=== PATIENT | female | born 1960 | race Caucasian/White ===

== ENCOUNTER 2018-06-14 18:53 | Inpatient (IN) | payer MEDICAID ==
[~2018-06-14] VITALS: Ht 154.9 cm; Wt 76.9 kg
[~2018-06-14 18:53] MED LIST: ALBU2.5V12 NEB; AZI25OT PO; CLON-529 PO; GABA-534 PO; HYDR-3965 PO; IPRA4AER IH; LEVO125T PO; OMEP20CA10 PO; PRED10TA PO; PRED20TA PO; SPIR50TA5 PO; VENL-191 PO
[2018-06-14 19:21] LABS: HEMATOCRIT 35.8 % (35.0-45.0); HEMOGLOBIN 11.8 g/dl (12.0-16.0); MEAN CORPUSCULAR HEMOGLOBIN 29.3 PG (27.0-31.0); MEAN CORPUSCULAR VOLUME 88.7 FL (78-98); MEAN PLATELET VOLUME 8.8 FL (7.4-10.4); PLATELET COUNT 121 X10'3 (140-440); RED BLOOD COUNT 4.03 X10'6 (4.20-5.60); RED CELL DISTRIBUTION WIDTH 16.6 % (11.5-14.5); WHITE BLOOD COUNT 4.7 X10'3 (4.5-11.0)
[2018-06-14 19:34] LABS: INR 1.1 INR; PARTIAL THROMBOPLASTIN TIME 24 SECONDS (22-32); PROTHROMBIN TIME 11.8 SECONDS (9.0-12.0)
[2018-06-14 19:37] LABS: ALANINE AMINOTRANSFERASE 66 U/L (12-78); ALBUMIN 2.4 G/DL (3.4-5.0); ALBUMIN/GLOBULIN RATIO 0.5 (1.1-1.5); ALKALINE PHOSPHATASE 174 IU/L (46-116); ANION GAP 4 (8-16); ASPARTATE AMINO TRANSFERASE 70 U/L (10-37); BILIRUBIN,TOTAL 1.6 MG/DL (0.1-1.0); BLOOD UREA NITROGEN 21 MG/DL (7-18); BUN/CREATININE RATIO 14.3 (6.6-38.0); CALCIUM 9.1 MG/DL (8.5-10.1); CHLORIDE 107 MMOL/L (99-107); CREATININE 1.47 MG/DL (0.40-0.90); GLUCOSE 101 MG/DL (70-104); POTASSIUM 3.7 MMOL/L (3.5-5.1); SODIUM 138 MMOL/L (135-145); TOTAL CARBON DIOXIDE 26.7 MMOL/L (24-32); TOTAL PROTEIN 6.9 G/DL (6.4-8.2); eGFR 37 ML/MIN
[2018-06-14 19:48] LABS: ANISOCYTOSIS 1+; PLATELET ESTIMATE DECREASED; TOTAL CELLS COUNTED 100
[2018-06-14] MEDS ORDERED: normal saline 1000ML IV soln IVB ONE ×2 (20:45→21:40)
[2018-06-14] MEDS ORDERED: nitroGLYCERIN 0.4mg/hour patch TD ONE (20:50)
[2018-06-14] MEDS ORDERED: cloNIDine 0.2 MG/24 HR patch (7 day patch) TD ONE (20:55)
[2018-06-14] MEDS ORDERED: cloNIDine 0.1 mg tablet PO STA (21:06)
[2018-06-14 21:29] LABS: D-DIMER 5.86 MG/L FEU (0-0.50)
[2018-06-14] MEDS ORDERED: iohexol 350MG/ML 100ml bottle IV ONE (21:42)
[2018-06-14] MEDS ORDERED: IRON-12 (23:30)
[2018-06-14] MEDS ORDERED: ACET-2971 PO (23:30)
[2018-06-14] MEDS ORDERED: ASPI81TA52 PO (23:30)
[2018-06-14] MEDS ORDERED: GABA600T2 PO (23:30)
[2018-06-14] MEDS ORDERED: CefTRIAXone 2gm/D5W 50ml 50 ML IV ONE (23:55)
[2018-06-14] MEDS ORDERED: azithromycin/NS 500mg/250ml 250 ML IV ONE (23:55)
[2018-06-15 00:04] LABS: CLARITY,URINE CLEAR (Clear); COLOR,URINE YELLOW (Yellow); GLUCOSE, URINE NEGATIVE (Neg); KETONES,URINE NEGATIVE (Neg); LEUKOCYTE ESTERASE ,URINE NEGATIVE (Neg); NITRITES, URINE NEGATIVE (Neg); OCCULT BLOOD,URINE NEGATIVE (Neg); PH,URINE 5.5 (4.8-8.0); PROTEIN,URINE 30 mg/dl (Neg)
[2018-06-15 00:14] LABS: UA COLLECTION TYPE CLN CATCH MIDSTREAM
[2018-06-15 00:15] LABS: BACTERIA,URINE NONE SEEN /HPF (Neg); RBC,URINE NONE SEEN /HPF (0-2); SQUAMOUS EPITHELIAL CELL,UR FEW /LPF (FEW); WBC,URINE NONE SEEN /HPF (0-4)
[2018-06-15] MEDS ORDERED: magnesium 4gm in 100ml NS 100 ML IV PRN (01:55)
[2018-06-15] MEDS ORDERED: magnesium Cl slow-release 64mg tablet PO PRN (01:55)
[2018-06-15] MEDS ORDERED: potassium Cl 20 mEq SR tablet PO PRN ×2 (01:55)
[2018-06-15] MEDS ORDERED: potassium Cl 40MEQ/NS 500ml 500 ML IV PRN ×2 (01:55)
[2018-06-15] MEDS ORDERED: magnesium 1gm/100ml D5W IVPB 100 ML IV PRN (01:55)
[2018-06-15] MEDS ORDERED: ondansetron/PF 4mg/2ml inj IV PRN (01:55)
[2018-06-15 03:50] VITALS: BP 126/72
[2018-06-15 07:00] VITALS: BP 123/71
[2018-06-15] MEDS: K and/or MAG REPLACEMENT MC SCH (08:00)
[2018-06-15] MEDS: furosemide 40mg/4ml inj IV SCH ×2 (08:00→20:21)
[2018-06-15 09:30] LABS: INR 1.2 INR; PROTHROMBIN TIME 11.9 SECONDS (9.0-12.0)
[2018-06-15 11:00] VITALS: BP 117/69
[2018-06-15 15:00] VITALS: BP 136/63
[2018-06-15 19:00] VITALS: BP 146/75
[2018-06-15] MEDS: lactobacillus rhamnosus 10,000 MMU CELLS/CAPSULE PO SCH (20:21)
[2018-06-15] MEDS: CefTRIAXone/D5W-Rocephin 1gm 50 ML IV SCH (20:34)
[2018-06-15] MEDS: azithromycin/NS 500mg/250ml 250 ML IV SCH (22:27)
[2018-06-15 23:00] VITALS: BP 173/76
[2018-06-16 03:00] VITALS: BP 176/84
[2018-06-16 07:00] VITALS: BP 181/95
[2018-06-16] MEDS: furosemide 40mg/4ml inj IV SCH ×2 (07:19→20:00)
[2018-06-16] MEDS: lactobacillus rhamnosus 10,000 MMU CELLS/CAPSULE PO SCH ×2 (07:19→20:14)
[2018-06-16 07:25] LABS: HEMATOCRIT 36.2 % (35.0-45.0); HEMOGLOBIN 12.2 g/dl (12.0-16.0); MEAN CORPUSCULAR HGB CONC 33.8 % (33.0-36.5); MEAN CORPUSCULAR VOLUME 88.7 FL (78-98); MEAN PLATELET VOLUME 10.1 FL (7.4-10.4); PLATELET COUNT 98 X10'3 (140-440); RED BLOOD COUNT 4.08 X10'6 (4.20-5.60); RED CELL DISTRIBUTION WIDTH 16.7 % (11.5-14.5); WHITE BLOOD COUNT 5.1 X10'3 (4.5-11.0)
[2018-06-16 07:43] LABS: ANISOCYTOSIS 1+; PLATELET ESTIMATE DECREASED; TOTAL CELLS COUNTED 100
[2018-06-16] MEDS: K and/or MAG REPLACEMENT MC SCH (08:00)
[2018-06-16 09:27] LABS: ALANINE AMINOTRANSFERASE 58 U/L (12-78); ALBUMIN 2.2 G/DL (3.4-5.0); ALBUMIN/GLOBULIN RATIO 0.4 (1.1-1.5); ALKALINE PHOSPHATASE 191 IU/L (46-116); ANION GAP 9 (8-16); ASPARTATE AMINO TRANSFERASE 70 U/L (10-37); BILIRUBIN,TOTAL 1.2 MG/DL (0.1-1.0); BLOOD UREA NITROGEN 26 MG/DL (7-18); BUN/CREATININE RATIO 18.1 (6.6-38.0); CALCIUM 8.8 MG/DL (8.5-10.1); CHLORIDE 104 MMOL/L (99-107); CREATININE 1.44 MG/DL (0.40-0.90); GLUCOSE 173 MG/DL (70-104); MAGNESIUM 1.8 MG/DL (1.5-2.4); POTASSIUM 4.5 MMOL/L (3.5-5.1); SODIUM 138 MMOL/L (135-145); TOTAL CARBON DIOXIDE 24.8 MMOL/L (24-32); TOTAL PROTEIN 7.3 G/DL (6.4-8.2); eGFR 38 ML/MIN
[2018-06-16 11:00] VITALS: BP 179/85
[2018-06-16] MEDS ORDERED: acetaminophen 325mg tablet PO PRN (11:00)
[2018-06-16] MEDS: venlafaxine 37.5mg tablet PO SCH (11:33)
[2018-06-16] MEDS: levoTHYROXINE 125mcg tablet PO SCH (11:33)
[2018-06-16] MEDS: gabapentin 300mg capsule PO SCH ×2 (13:57→21:53)
[2018-06-16 15:00] VITALS: BP 178/100
[2018-06-16 18:56] LABS: URINE AMPHETAMINE SCREEN POSITIVE (Neg); URINE BARBITUATE SCREEN NEGATIVE (Neg); URINE BENZODIAZEPINES SCREEN NEGATIVE (Neg); URINE CANNABINOID SCREEN NEGATIVE (Neg); URINE COCAINE SCREEN NEGATIVE (Neg); URINE METHADONE SCREEN NEGATIVE (Neg); URINE OPIATE SCREEN NEGATIVE (Neg); URINE PHENCYCLIDINE SCREEN NEGATIVE (Neg)
[2018-06-16 19:00] VITALS: BP 192/94
[2018-06-16] MEDS: cloNIDine 0.1 mg tablet PO SCH (20:14)
[2018-06-16] MEDS: spironolactone 50 MG tablet PO SCH (20:14)
[2018-06-16] MEDS: CefTRIAXone/D5W-Rocephin 1gm 50 ML IV SCH (20:18)
[2018-06-16] MEDS: azithromycin/NS 500mg/250ml 250 ML IV SCH (21:53)
[2018-06-16 23:00] VITALS: BP 115/76
[2018-06-17 03:00] VITALS: BP 119/71
[2018-06-17 05:29] LABS: HEMATOCRIT 33.6 % (35.0-45.0); HEMOGLOBIN 11.1 g/dl (12.0-16.0); MEAN CORPUSCULAR HEMOGLOBIN 29.3 PG (27.0-31.0); MEAN CORPUSCULAR HGB CONC 32.9 % (33.0-36.5); MEAN CORPUSCULAR VOLUME 89.3 FL (78-98); MEAN PLATELET VOLUME 9.6 FL (7.4-10.4); PLATELET COUNT 100 X10'3 (140-440); RED BLOOD COUNT 3.77 X10'6 (4.20-5.60); WHITE BLOOD COUNT 4.8 X10'3 (4.5-11.0)
[2018-06-17 06:01] LABS: ALANINE AMINOTRANSFERASE 50 U/L (12-78); ALBUMIN 1.9 G/DL (3.4-5.0); ALBUMIN/GLOBULIN RATIO 0.4 (1.1-1.5); ALKALINE PHOSPHATASE 186 IU/L (46-116); ANION GAP 7 (8-16); ASPARTATE AMINO TRANSFERASE 60 U/L (10-37); BILIRUBIN,TOTAL 0.7 MG/DL (0.1-1.0); BLOOD UREA NITROGEN 26 MG/DL (7-18); BUN/CREATININE RATIO 19.8 (6.6-38.0); CHLORIDE 107 MMOL/L (99-107); CREATININE 1.31 MG/DL (0.40-0.90); GLUCOSE 101 MG/DL (70-104); MAGNESIUM 1.9 MG/DL (1.5-2.4); POTASSIUM 3.4 MMOL/L (3.5-5.1); SODIUM 142 MMOL/L (135-145); TOTAL CARBON DIOXIDE 28.2 MMOL/L (24-32); TOTAL PROTEIN 6.3 G/DL (6.4-8.2); eGFR 42 ML/MIN
[2018-06-17 07:00] VITALS: BP 152/71
[2018-06-17] MEDS: K and/or MAG REPLACEMENT MC SCH (07:47)
[2018-06-17] MEDS ORDERED: aspirin 81mg tablet.DR PO SCH (08:00)
[2018-06-17] MEDS: levoTHYROXINE 125mcg tablet PO SCH (08:04)
[2018-06-17] MEDS: gabapentin 300mg capsule PO SCH ×2 (08:04→13:34)
[2018-06-17] MEDS: spironolactone 50 MG tablet PO SCH (08:05)
[2018-06-17] MEDS: lactobacillus rhamnosus 10,000 MMU CELLS/CAPSULE PO SCH (08:05)
[2018-06-17] MEDS: furosemide 40mg/4ml inj IV SCH (08:05)
[2018-06-17] MEDS: cloNIDine 0.1 mg tablet PO SCH (08:05)
[2018-06-17] MEDS: venlafaxine 37.5mg tablet PO SCH (08:10)
[2018-06-17] MEDS ORDERED: FURO-150 PO (08:44)
[2018-06-17] MEDS ORDERED: LEVO150T PO (08:44)
[2018-06-17] MEDS ORDERED: POTA10TA36 PO (08:44)
[2018-06-17] MEDS ORDERED: AMOX-580 PO (08:50)
[2018-06-17 11:00] VITALS: BP 96/58
[2018-06-17 11:11] LABS: NUCLEATED RED BLOOD CELLS 1 /100WBC (0-0); TOTAL CELLS COUNTED 100
[2018-06-17 11:12] LABS: ANISOCYTOSIS 1+; PLATELET ESTIMATE DECREASED
== END 2018-06-17 14:50 | disposition home or self-care (01) | DRG 139 ==
LOC: ER 18:53 → ED HOLD 06-15 01:51 → EDBEDREQ 06-15 02:59 → PCU 3S 06-15 03:44
PROVIDERS: ADMIT Internal Medicine; ATTEND Internal Medicine
PROC: BW241ZZ Computerized Tomography (CT Scan) of Chest and Abdomen using Low Osmolar Contrast (ICD-10-PCS; principal; 2018-06-14)
DX: J18.9 Pneumonia, unspecified organism (principal); I50.43 Acute on chronic combined systolic (congestive) and diastolic (congestive) heart failure; D69.6 Thrombocytopenia, unspecified; K74.60 Unspecified cirrhosis of liver; J44.0 Chronic obstructive pulmonary disease with (acute) lower respiratory infection; E86.0 Dehydration; I11.0 Hypertensive heart disease with heart failure; F15.10 Other stimulant abuse, uncomplicated; E03.9 Hypothyroidism, unspecified; J98.11 Atelectasis; K40.90 Unilateral inguinal hernia, without obstruction or gangrene, not specified as recurrent; Z87.891 Personal history of nicotine dependence; Z90.49 Acquired absence of other specified parts of digestive tract; Z79.899 Other long term (current) drug therapy
CPT/HCPCS: 36415; 71045; 71275; 80053; 80305; 81001; 81003; 82140; 83735; 83880; 84145; 84443; 84484; 85025; 85379; 85610; 85730; 87070; 93005; 93306; 96361; 96365; 99285; J0456; J0696; J1940; J7030; Q9967

== ENCOUNTER 2018-07-22 06:29 | Inpatient (IN) | payer MEDICAID ==
[~2018-07-22] VITALS: Ht 154.9 cm; Wt 82.2 kg
[2018-07-22] VITALS (17 sets, daily range): BP systolic 135–198; BP diastolic 62–96
[~2018-07-22 06:29] MED LIST changes: +ACET-2971 PO; -ALBU2.5V12 NEB; +ASPI81TA52 PO; -AZI25OT PO; -GABA-534 PO; +GABA600T2 PO; -HYDR-3965 PO; -IPRA4AER IH; +IRON-12; -LEVO125T PO; +LEVO150T PO; -OMEP20CA10 PO; +POTA10TA36 PO; -PRED10TA PO; -PRED20TA PO
[2018-07-22] MEDS ORDERED: pantoprazole 40 MG vial IV ONE (07:20)
[2018-07-22] MEDS ORDERED: normal saline 1000ML IV soln IVB ONE (07:20)
[2018-07-22] MEDS ORDERED: tranexamic acid 100mg/ml inj. IV ONE (07:20)
[2018-07-22] MEDS ORDERED: tranexamic acid inj. 680 MG in normal saline 100ml IV soln 93.2 ML IV ONE (07:40)
[2018-07-22] MEDS ORDERED: ondansetron/PF 4mg/2ml inj IV ONE (07:45)
[2018-07-22 08:01] LABS: MEAN CORPUSCULAR HEMOGLOBIN 30.3 PG (27.0-31.0); MEAN CORPUSCULAR HGB CONC 32.7 % (33.0-36.5); MEAN CORPUSCULAR VOLUME 92.7 FL (78-98); MEAN PLATELET VOLUME 9.4 FL (7.4-10.4); PLATELET COUNT 140 X10'3 (140-440); RED BLOOD COUNT 2.05 X10'6 (4.20-5.60); RED CELL DISTRIBUTION WIDTH 17.6 % (11.5-14.5); WHITE BLOOD COUNT 8.2 X10'3 (4.5-11.0)
[2018-07-22 08:02] LABS: INR 1.2 INR; PROTHROMBIN TIME 12.3 SECONDS (9.0-12.0)
[2018-07-22 08:09] LABS: ALANINE AMINOTRANSFERASE 42 U/L (12-78); ALBUMIN 1.6 G/DL (3.4-5.0); ALBUMIN/GLOBULIN RATIO 0.4 (1.1-1.5); ALKALINE PHOSPHATASE 150 IU/L (46-116); ANION GAP 7 (8-16); ASPARTATE AMINO TRANSFERASE 66 U/L (10-37); BILIRUBIN,TOTAL 0.8 MG/DL (0.1-1.0); BLOOD UREA NITROGEN 69 MG/DL (7-18); BUN/CREATININE RATIO 38.3 (6.6-38.0); CALCIUM 9.2 MG/DL (8.5-10.1); CHLORIDE 109 MMOL/L (99-107); ETHANOL < 0.010 GM/DL (0.0-0.010); GLUCOSE 145 MG/DL (70-104); LIPASE 234 U/L (73-393); POTASSIUM 4.1 MMOL/L (3.5-5.1); SODIUM 143 MMOL/L (135-145); TOTAL CARBON DIOXIDE 26.6 MMOL/L (24-32); TOTAL PROTEIN 5.6 G/DL (6.4-8.2); eGFR 29 ML/MIN
[2018-07-22 08:11] LABS: LACTIC SEPSIS 2.2 MMOL/L (0.4-2.0)
[2018-07-22] MEDS: octreotide 100mcg/1 ml ampule IV ONE ×2 (08:11→08:22)
[2018-07-22 08:12] LABS: HEMOGLOBIN 6.2 g/dl (12.0-16.0)
[2018-07-22 08:26] LABS: TOTAL CELLS COUNTED 100
[2018-07-22 08:27] LABS: ANISOCYTOSIS 2+; LARGE PLATELETS FEW; PLATELET ESTIMATE DECREASED; POLYCHROMASIA 2+
[2018-07-22] MEDS: octreotide inj. 1,250 MCG in normal saline 250ml IV soln 243.75 ML IV SCH (08:37)
[2018-07-22 08:54] LABS: URINE HCG NEGATIVE (NEG)
[2018-07-22 09:02] LABS: CLARITY,URINE CLEAR (Clear); COLOR,URINE STRAW (Yellow); GLUCOSE, URINE NEGATIVE (Neg); KETONES,URINE NEGATIVE (Neg); LEUKOCYTE ESTERASE ,URINE NEGATIVE (Neg); NITRITES, URINE NEGATIVE (Neg); OCCULT BLOOD,URINE NEGATIVE (Neg); PROTEIN,URINE NEGATIVE (Neg); UROBILINOGEN,URINE 0.2 E.U/dL (0.2-1.0)
[2018-07-22] MEDS ORDERED: FURO-150 PO (09:15)
[2018-07-22 09:20] LABS: UA COLLECTION TYPE STRAIGHT CATH
[2018-07-22] MEDS ORDERED: LIDOcaine Viscous 15ml cup ONE (09:34)
[2018-07-22] MEDS ORDERED: fentaNYL/PF 50MCG/1 ML 2ML syringe ONE (09:34)
[2018-07-22] MEDS ORDERED: MIDAZolam 5mg/5ml vial ONE (09:34)
[2018-07-22] MEDS ORDERED: BACDS PO (09:48)
[2018-07-22] MEDS ORDERED: OMEP10CA4 PO (09:50)
[2018-07-22] MEDS ORDERED: ondansetron/PF 4mg/2ml inj IV PRN (10:15)
[2018-07-22] MEDS ORDERED: octreotide inj. 1,250 MCG in normal saline 250ml IV soln 243.75 ML IV SCH (10:15)
[2018-07-22] MEDS ORDERED: mag hydrox/Alum hydrox/simeth 30ml oral suspension PO PRN (10:15)
[2018-07-22] MEDS ORDERED: magnesium hydroxide 30ml (MOM) UD suspension PO PRN (10:15)
[2018-07-22] MEDS ORDERED: acetaminophen 325mg tablet PO PRN ×2 (10:15→17:25)
[2018-07-22 13:41] LABS: HEMOGLOBIN 7.8 g/dl (12.0-16.0); MEAN CORPUSCULAR HEMOGLOBIN 30.4 PG (27.0-31.0); MEAN CORPUSCULAR HGB CONC 32.6 % (33.0-36.5); MEAN CORPUSCULAR VOLUME 93.2 FL (78-98); PLATELET COUNT 140 X10'3 (140-440); RED BLOOD COUNT 2.58 X10'6 (4.20-5.60); RED CELL DISTRIBUTION WIDTH 17.5 % (11.5-14.5); WHITE BLOOD COUNT 11.1 X10'3 (4.5-11.0)
[2018-07-22] MEDS ORDERED: POTA10TA36 PO (14:11)
[2018-07-22] MEDS ORDERED: LEVO150T8 PO (14:11)
[2018-07-22] MEDS: pantoprazole 40MG/NS 100ML BAG 100 ML IV SCH ×3 (15:50→20:15)
[2018-07-22] MEDS: normal saline 1000ml 1,000 ML IV SCH ×2 (16:03→20:12)
[2018-07-22] MEDS: lactulose 20gm/30ml cup PO SCH ×2 (16:09→20:03)
[2018-07-22] MEDS ORDERED: non-formulary drug (Acetaminophen (Tylenol Arthritis) 1 TAB) PO PRN (16:55)
[2018-07-22] MEDS ORDERED: NADO20TA PO (17:10)
[2018-07-22] MEDS: thiamine inj. 100 MG, MVI, adult No.4 with vit. K 10 ML in dextrose 5% water 500ml 489 ML IV SCH ×3 (17:57)
[2018-07-22] MEDS: spironolactone 50 MG tablet PO SCH (20:03)
[2018-07-22] MEDS: cloNIDine 0.1 mg tablet PO SCH (20:04)
[2018-07-22] MEDS: HYDROmorphone 1 mg/ml syringe IV PRN (20:05)
[2018-07-22 20:08] LABS: HEMATOCRIT 27.4 % (35.0-45.0); MEAN CORPUSCULAR HEMOGLOBIN 30.6 PG (27.0-31.0); MEAN CORPUSCULAR HGB CONC 32.9 % (33.0-36.5); MEAN CORPUSCULAR VOLUME 92.9 FL (78-98); MEAN PLATELET VOLUME 9.4 FL (7.4-10.4); PLATELET COUNT 135 X10'3 (140-440); RED BLOOD COUNT 2.94 X10'6 (4.20-5.60); RED CELL DISTRIBUTION WIDTH 16.8 % (11.5-14.5); WHITE BLOOD COUNT 14.2 X10'3 (4.5-11.0)
[2018-07-22] MEDS ORDERED: non-formulary drug (Gabapentin 1 TAB) PO SCH (21:00)
[2018-07-23] MEDS: pantoprazole 40MG/NS 100ML BAG 100 ML IV SCH ×5 (00:06→20:19)
[2018-07-23] MEDS: gabapentin 300mg capsule PO SCH ×4 (00:06→20:20)
[2018-07-23] MEDS: lactulose 20gm/30ml cup PO SCH ×4 (01:27→20:20)
[2018-07-23 02:00] VITALS: BP 142/74
[2018-07-23] MEDS: normal saline 1000ml 1,000 ML IV SCH ×2 (05:12→16:12)
[2018-07-23 05:15] LABS: HEMATOCRIT 26.9 % (35.0-45.0); HEMOGLOBIN 8.9 g/dl (12.0-16.0); MEAN CORPUSCULAR HEMOGLOBIN 31.2 PG (27.0-31.0); MEAN CORPUSCULAR HGB CONC 33.1 % (33.0-36.5); MEAN PLATELET VOLUME 8.9 FL (7.4-10.4); PLATELET COUNT 152 X10'3 (140-440); RED BLOOD COUNT 2.86 X10'6 (4.20-5.60); RED CELL DISTRIBUTION WIDTH 17.4 % (11.5-14.5); WHITE BLOOD COUNT 16.1 X10'3 (4.5-11.0)
[2018-07-23 05:16] LABS: ALBUMIN 1.7 G/DL (3.4-5.0); ANION GAP 5 (8-16); BLOOD UREA NITROGEN 70 MG/DL (7-18); BUN/CREATININE RATIO 34.5 (6.6-38.0); CALCIUM 8.7 MG/DL (8.5-10.1); CHLORIDE 111 MMOL/L (99-107); CREATININE 2.03 MG/DL (0.40-0.90); GLUCOSE 140 MG/DL (70-104); SODIUM 142 MMOL/L (135-145); TOTAL CARBON DIOXIDE 25.9 MMOL/L (24-32); eGFR 25 ML/MIN
[2018-07-23 05:33] LABS: POTASSIUM 4.7 MMOL/L (3.5-5.1)
[2018-07-23] MEDS: HYDROmorphone 1 mg/ml syringe IV PRN (05:57)
[2018-07-23 06:00] VITALS: BP 142/74
[2018-07-23 06:56] LABS: BANDS% (MANUAL) 2 % (0-10); BASOPHILS % (MANUAL) 1 % (0-1); EOSINOPHILS % (MANUAL) 4 % (0-6); LYMPHOCYTES % (MANUAL) 9 % (21-51); METAMYLEOCYTES% (MANUAL) 4 % (0-0); MONOCYTES % (MANUAL) 12 % (2-12); MYELOCYTES % (MANUAL) 1 % (0-0); NEUTROPHILS % (MANUAL) 67 % (42-75); NUCLEATED RED BLOOD CELLS 1 /100WBC (0-0); TOTAL CELLS COUNTED 100
[2018-07-23 06:57] LABS: PLATELET ESTIMATE NORMAL
[2018-07-23 06:58] LABS: ANISOCYTOSIS 1+; POLYCHROMASIA 1+
[2018-07-23] MEDS ORDERED: pantoprazole 40mg Tablet.DR PO SCH (07:30)
[2018-07-23] MEDS ORDERED: furosemide 40mg tablet PO SCH (08:00)
[2018-07-23] MEDS ORDERED: non-formulary drug (Omeprazole 1 CAP) PO SCH (08:00)
[2018-07-23] MEDS ORDERED: non-formulary drug (Potassium Chloride (K-Dur) 1 TAB) PO SCH (08:00)
[2018-07-23] MEDS ORDERED: non-formulary drug (Levothyroxine Sodium 1 TAB) PO SCH (08:00)
[2018-07-23] MEDS: potassium chloride 10mEq ER tablet PO SCH (08:19)
[2018-07-23] MEDS: venlafaxine 37.5mg tablet PO SCH (08:20)
[2018-07-23] MEDS: octreotide inj. 1,250 MCG in normal saline 250ml IV soln 243.75 ML IV SCH ×2 (08:20→23:09)
[2018-07-23] MEDS: cloNIDine 0.1 mg tablet PO SCH ×2 (08:20→20:20)
[2018-07-23] MEDS: spironolactone 50 MG tablet PO SCH ×2 (08:21→20:20)
[2018-07-23] MEDS: levoTHYROXINE 75mcg tablet PO SCH (08:23)
[2018-07-23] MEDS: thiamine inj. 100 MG, MVI, adult No.4 with vit. K 10 ML in dextrose 5% water 500ml 489 ML IV SCH ×3 (09:35)
[2018-07-23 10:53] LABS: HEMOGLOBIN 7.5 g/dl (12.0-16.0); MEAN CORPUSCULAR HGB CONC 32.8 % (33.0-36.5); MEAN CORPUSCULAR VOLUME 94.4 FL (78-98); MEAN PLATELET VOLUME 8.9 FL (7.4-10.4); PLATELET COUNT 138 X10'3 (140-440); RED BLOOD COUNT 2.43 X10'6 (4.20-5.60); RED CELL DISTRIBUTION WIDTH 18.4 % (11.5-14.5); WHITE BLOOD COUNT 15.6 X10'3 (4.5-11.0)
[2018-07-23 11:00] VITALS: BP 116/72
[2018-07-23 15:00] VITALS: BP 127/71
[2018-07-23 19:00] VITALS: BP 132/61
[2018-07-23] MEDS: thiamine 100mg tablet PO SCH (20:20)
[2018-07-23 23:00] VITALS: BP 105/57
[2018-07-24] VITALS (16 sets, daily range): BP systolic 92–132; BP diastolic 48–77
[2018-07-24] MEDS: pantoprazole 40MG/NS 100ML BAG 100 ML IV SCH ×5 (02:01→20:49)
[2018-07-24] MEDS: lactulose 20gm/30ml cup PO SCH ×4 (02:01→20:49)
[2018-07-24] MEDS: normal saline 1000ml 1,000 ML IV SCH ×3 (02:12→21:33)
[2018-07-24 05:44] LABS: BASOPHILS % (AUTO) 0.2 % (0-1); EOSINOPHILS # (AUTO) 0.8 X10'3 (0-0.9); EOSINOPHILS % (AUTO) 5.6 % (0-6); HEMATOCRIT 23.6 % (35.0-45.0); HEMOGLOBIN 7.9 g/dl (12.0-16.0); LYMPHOCYTES # (AUTO) 2.2 X10'3 (1.1-4.8); LYMPHOCYTES % (AUTO) 15.2 % (21-51); MEAN CORPUSCULAR HEMOGLOBIN 31.7 PG (27.0-31.0); MEAN CORPUSCULAR HGB CONC 33.6 % (33.0-36.5); MEAN CORPUSCULAR VOLUME 94.5 FL (78-98); MEAN PLATELET VOLUME 9.1 FL (7.4-10.4); MONOCYTES # (AUTO) 2.3 X10'3 (0-0.9); MONOCYTES % (AUTO) 16.2 % (2-12); NEUTROPHILS % (AUTO) 62.8 % (42-75); PLATELET COUNT 134 X10'3 (140-440); RED CELL DISTRIBUTION WIDTH 18.6 % (11.5-14.5); WHITE BLOOD COUNT 14.3 X10'3 (4.5-11.0)
[2018-07-24 06:04] LABS: ALBUMIN 1.6 G/DL (3.4-5.0); ANION GAP 6 (8-16); BLOOD UREA NITROGEN 71 MG/DL (7-18); CALCIUM 8.3 MG/DL (8.5-10.1); CHLORIDE 111 MMOL/L (99-107); CREATININE 2.29 MG/DL (0.40-0.90); GLUCOSE 125 MG/DL (70-104); POTASSIUM 4.5 MMOL/L (3.5-5.1); SODIUM 140 MMOL/L (135-145); TOTAL CARBON DIOXIDE 23.3 MMOL/L (24-32); eGFR 22 ML/MIN
[2018-07-24] MEDS: thiamine 100mg tablet PO SCH ×2 (08:27→20:50)
[2018-07-24] MEDS: spironolactone 50 MG tablet PO SCH (08:27)
[2018-07-24] MEDS: gabapentin 300mg capsule PO SCH ×3 (08:27→20:50)
[2018-07-24] MEDS: levoTHYROXINE 75mcg tablet PO SCH (08:27)
[2018-07-24] MEDS: potassium chloride 10mEq ER tablet PO SCH (08:28)
[2018-07-24] MEDS: cloNIDine 0.1 mg tablet PO SCH ×2 (08:28→19:29)
[2018-07-24] MEDS: folic acid 1mg tablet PO SCH (08:28)
[2018-07-24] MEDS: venlafaxine 37.5mg tablet PO SCH (08:28)
[2018-07-24 08:46] LABS: NUCLEATED RED BLOOD CELLS 1 /100WBC (0-0); PLATELET ESTIMATE DECREASED; TOTAL CELLS COUNTED 100
[2018-07-24 08:47] LABS: ANISOCYTOSIS 2+; LARGE PLATELETS FEW; POLYCHROMASIA 2+
[2018-07-24 10:50] LABS: HEMOGLOBIN 7.1 g/dl (12.0-16.0); MEAN CORPUSCULAR HEMOGLOBIN 31.2 PG (27.0-31.0); MEAN CORPUSCULAR HGB CONC 32.7 % (33.0-36.5); MEAN CORPUSCULAR VOLUME 95.4 FL (78-98); MEAN PLATELET VOLUME 9.2 FL (7.4-10.4); PLATELET COUNT 122 X10'3 (140-440); RED BLOOD COUNT 2.28 X10'6 (4.20-5.60); RED CELL DISTRIBUTION WIDTH 19.1 % (11.5-14.5); WHITE BLOOD COUNT 11.1 X10'3 (4.5-11.0)
[2018-07-24 10:55] LABS: HEMATOCRIT 21.8 % (35.0-45.0)
[2018-07-24 12:40] LABS: OSMOLALITY 318 MOSM/K (280-300)
[2018-07-24 13:07] LABS: HEMATOCRIT 22.3 % (35.0-45.0); HEMOGLOBIN 7.3 g/dl (12.0-16.0); MEAN CORPUSCULAR HEMOGLOBIN 31.1 PG (27.0-31.0); MEAN CORPUSCULAR HGB CONC 32.7 % (33.0-36.5); MEAN CORPUSCULAR VOLUME 95.1 FL (78-98); PLATELET COUNT 121 X10'3 (140-440); RED BLOOD COUNT 2.34 X10'6 (4.20-5.60); RED CELL DISTRIBUTION WIDTH 18.9 % (11.5-14.5); WHITE BLOOD COUNT 11.6 X10'3 (4.5-11.0)
[2018-07-24 13:46] LABS: TOTAL PROTEIN,URINE RANDOM 7.8 MG/DL
[2018-07-24] MEDS: metroNIDAZOLE-Flagyl 500mg/NS 100 ML IV SCH (17:44)
[2018-07-24] MEDS: spironolactone 25 MG tablet PO SCH (20:49)
[2018-07-24] MEDS: ciprofloxacin/D5W 200mg/100mL 100 ML IV SCH (20:49)
[2018-07-24 22:08] LABS: HEMATOCRIT 29.7 % (35.0-45.0); HEMOGLOBIN 9.8 g/dl (12.0-16.0); MEAN CORPUSCULAR HGB CONC 33.1 % (33.0-36.5); MEAN CORPUSCULAR VOLUME 93.8 FL (78-98); MEAN PLATELET VOLUME 9.1 FL (7.4-10.4); PLATELET COUNT 112 X10'3 (140-440); RED BLOOD COUNT 3.16 X10'6 (4.20-5.60); RED CELL DISTRIBUTION WIDTH 18.2 % (11.5-14.5); WHITE BLOOD COUNT 9.3 X10'3 (4.5-11.0)
[2018-07-24 22:47] LABS: % IRON SATURATION 14 % (11-46); IRON 30 UG/DL (49-151); TOTAL IRON BINDING CAPACITY 210 UG/DL (259-388)
[2018-07-24 22:58] LABS: FERRITIN 64 NG/ML (8-252)
[2018-07-25] MEDS: metroNIDAZOLE-Flagyl 500mg/NS 100 ML IV SCH ×4 (00:23→23:43)
[2018-07-25] MEDS: pantoprazole 40MG/NS 100ML BAG 100 ML IV SCH ×6 (02:01→23:44)
[2018-07-25] MEDS: octreotide inj. 1,250 MCG in normal saline 250ml IV soln 243.75 ML IV SCH ×2 (02:02→23:46)
[2018-07-25] MEDS: lactulose 20gm/30ml cup PO SCH ×4 (02:07→20:44)
[2018-07-25 03:00] VITALS: BP 152/77
[2018-07-25 06:00] VITALS: BP 128/70
[2018-07-25 06:47] LABS: BASOPHILS # (AUTO) 0.1 X10'3 (0-0.2); BASOPHILS % (AUTO) 0.8 % (0-1); EOSINOPHILS # (AUTO) 0.6 X10'3 (0-0.9); EOSINOPHILS % (AUTO) 6.9 % (0-6); HEMATOCRIT 28.4 % (35.0-45.0); HEMOGLOBIN 9.4 g/dl (12.0-16.0); LYMPHOCYTES # (AUTO) 1.4 X10'3 (1.1-4.8); LYMPHOCYTES % (AUTO) 15.9 % (21-51); MEAN CORPUSCULAR HEMOGLOBIN 31.2 PG (27.0-31.0); MEAN CORPUSCULAR HGB CONC 32.9 % (33.0-36.5); MEAN CORPUSCULAR VOLUME 94.9 FL (78-98); MEAN PLATELET VOLUME 9.5 FL (7.4-10.4); MONOCYTES # (AUTO) 1.4 X10'3 (0-0.9); MONOCYTES % (AUTO) 16.7 % (2-12); NEUTROPHILS # (AUTO) 5.1 X10'3 (1.8-7.7); NEUTROPHILS % (AUTO) 59.7 % (42-75); PLATELET COUNT 119 X10'3 (140-440); RED CELL DISTRIBUTION WIDTH 17.9 % (11.5-14.5); WHITE BLOOD COUNT 8.5 X10'3 (4.5-11.0)
[2018-07-25] MEDS: levoTHYROXINE 75mcg tablet PO SCH (07:00)
[2018-07-25] MEDS ORDERED: sodium ferric gluc complex inj 25 MG in normal saline 50ml IV soln 48 ML IV ONE (07:10)
[2018-07-25 07:48] LABS: ALBUMIN 1.7 G/DL (3.4-5.0); ANION GAP 11 (8-16); BLOOD UREA NITROGEN 59 MG/DL (7-18); BUN/CREATININE RATIO 27.2 (6.6-38.0); CALCIUM 8.3 MG/DL (8.5-10.1); CHLORIDE 112 MMOL/L (99-107); CREATININE 2.17 MG/DL (0.40-0.90); GLUCOSE 119 MG/DL (70-104); LACTATE DEHYDROGENASE 344 U/L (81-234); POTASSIUM 4.2 MMOL/L (3.5-5.1); SODIUM 144 MMOL/L (135-145); TOTAL CARBON DIOXIDE 21.1 MMOL/L (24-32); eGFR 23 ML/MIN
[2018-07-25] MEDS ORDERED: sodium ferric gluc complex inj 125 MG in normal saline 100ml IV soln 100 ML IV SCH (08:00)
[2018-07-25] MEDS: spironolactone 25 MG tablet PO SCH ×2 (08:57→20:44)
[2018-07-25] MEDS: thiamine 100mg tablet PO SCH ×2 (08:58→20:44)
[2018-07-25] MEDS: gabapentin 300mg capsule PO SCH ×3 (08:58→20:45)
[2018-07-25] MEDS: potassium chloride 10mEq ER tablet PO SCH (08:58)
[2018-07-25] MEDS: folic acid 1mg tablet PO SCH (08:58)
[2018-07-25] MEDS: ciprofloxacin/D5W 200mg/100mL 100 ML IV SCH ×2 (08:58→20:43)
[2018-07-25] MEDS: cloNIDine 0.1 mg tablet PO SCH ×2 (08:58→20:44)
[2018-07-25] MEDS: venlafaxine 37.5mg tablet PO SCH (08:58)
[2018-07-25] MEDS: normal saline 1000ml 1,000 ML IV SCH ×3 (08:59→23:43)
[2018-07-25] MEDS ORDERED: NORMAL SALINE IV ONE (09:00)
[2018-07-25] MEDS ORDERED: SODIUM FERRIC GLUC COMPLEX IV ONE (09:00)
[2018-07-25 10:06] LABS: ANISOCYTOSIS 2+; PLATELET ESTIMATE DECREASED; POLYCHROMASIA 2+
[2018-07-25 10:07] LABS: BURR CELLS 1+; HYPOCHROMASIA 1+
[2018-07-25 10:10] LABS: HIV ANTIBODY 1&2 RAPID NON-REACTIVE (Neg)
[2018-07-25 10:26] LABS: RF TITER 10 IU/ml (Neg); RHEUM FACTOR QUAL REFLEX TITER POSITIVE (Neg)
[2018-07-25 11:00] VITALS: BP 123/75
[2018-07-25 15:00] VITALS: BP 124/77
[2018-07-25 19:00] VITALS: BP 136/80
[2018-07-25 23:00] VITALS: BP 138/64
[2018-07-26] MEDS: lactulose 20gm/30ml cup PO SCH ×4 (02:29→21:34)
[2018-07-26 03:00] VITALS: BP 128/52
[2018-07-26 05:45] VITALS: BP 141/59
[2018-07-26] MEDS: pantoprazole 40MG/NS 100ML BAG 100 ML IV SCH ×5 (06:00→23:32)
[2018-07-26 07:44] LABS: HEMATOCRIT 27.8 % (35.0-45.0); HEMOGLOBIN 9.3 g/dl (12.0-16.0); MEAN CORPUSCULAR HEMOGLOBIN 31.7 PG (27.0-31.0); MEAN CORPUSCULAR HGB CONC 33.3 % (33.0-36.5); MEAN CORPUSCULAR VOLUME 95.3 FL (78-98); MEAN PLATELET VOLUME 9.5 FL (7.4-10.4); PLATELET COUNT 112 X10'3 (140-440); RED BLOOD COUNT 2.92 X10'6 (4.20-5.60); RED CELL DISTRIBUTION WIDTH 18.8 % (11.5-14.5); WHITE BLOOD COUNT 7.5 X10'3 (4.5-11.0)
[2018-07-26] MEDS: sodium ferric gluc complex inj 125 MG in normal saline 100ml IV soln 100 ML IV SCH (08:00)
[2018-07-26] MEDS: spironolactone 25 MG tablet PO SCH ×2 (08:17→21:13)
[2018-07-26] MEDS: venlafaxine 37.5mg tablet PO SCH (08:18)
[2018-07-26] MEDS: folic acid 1mg tablet PO SCH (08:18)
[2018-07-26] MEDS: gabapentin 300mg capsule PO SCH ×3 (08:18→21:14)
[2018-07-26] MEDS: thiamine 100mg tablet PO SCH ×2 (08:18→21:34)
[2018-07-26] MEDS: potassium chloride 10mEq ER tablet PO SCH (08:18)
[2018-07-26] MEDS: levoTHYROXINE 75mcg tablet PO SCH (08:18)
[2018-07-26] MEDS: metroNIDAZOLE-Flagyl 500mg/NS 100 ML IV SCH ×2 (08:21→15:43)
[2018-07-26] MEDS: cloNIDine 0.1 mg tablet PO SCH ×2 (08:28→22:19)
[2018-07-26 08:30] VITALS: BP 141/59
[2018-07-26 08:34] LABS: ANISOCYTOSIS 2+; PLATELET ESTIMATE DECREASED; TOTAL CELLS COUNTED 100
[2018-07-26 08:35] LABS: POIKILOCYTOSIS FEW; POLYCHROMASIA 1+
[2018-07-26 08:52] LABS: RPR Non Reactive (Non Reactive)
[2018-07-26 08:54] LABS: ALBUMIN 1.6 G/DL (3.4-5.0); ANION GAP 8 (8-16); BLOOD UREA NITROGEN 43 MG/DL (7-18); BUN/CREATININE RATIO 23.1 (6.6-38.0); CALCIUM 7.8 MG/DL (8.5-10.1); CHLORIDE 113 MMOL/L (99-107); CREATININE 1.86 MG/DL (0.40-0.90); GLUCOSE 118 MG/DL (70-104); POTASSIUM 3.9 MMOL/L (3.5-5.1); SODIUM 142 MMOL/L (135-145); eGFR 28 ML/MIN
[2018-07-26 09:47] LABS: HBSAG SCREEN Negative (Negative); HEPATITIS C ANTIBODY 0.9 s/co ratio (0.0-0.9)
[2018-07-26] MEDS: ciprofloxacin/D5W 200mg/100mL 100 ML IV SCH ×2 (09:55→21:13)
[2018-07-26] MEDS: normal saline 1000ml 1,000 ML IV SCH ×2 (11:19→23:51)
[2018-07-26 13:04] VITALS: BP 93/59
[2018-07-26 18:00] VITALS: BP 135/71
[2018-07-26 22:00] VITALS: BP 138/74
[2018-07-27] MEDS: metroNIDAZOLE-Flagyl 500mg/NS 100 ML IV SCH ×3 (00:02→14:31)
[2018-07-27] MEDS: lactulose 20gm/30ml cup PO SCH ×3 (03:21→17:02)
[2018-07-27] MEDS: pantoprazole 40MG/NS 100ML BAG 100 ML IV SCH ×4 (04:51→20:54)
[2018-07-27 06:22] LABS: HEMATOCRIT 27.6 % (35.0-45.0); MEAN CORPUSCULAR HGB CONC 32.6 % (33.0-36.5); MEAN CORPUSCULAR VOLUME 95.1 FL (78-98); MEAN PLATELET VOLUME 9.4 FL (7.4-10.4); PLATELET COUNT 118 X10'3 (140-440); RED CELL DISTRIBUTION WIDTH 19.3 % (11.5-14.5); WHITE BLOOD COUNT 7.1 X10'3 (4.5-11.0)
[2018-07-27 06:46] LABS: ALBUMIN 1.6 G/DL (3.4-5.0); ANION GAP 11 (8-16); BLOOD UREA NITROGEN 33 MG/DL (7-18); CALCIUM 7.9 MG/DL (8.5-10.1); CHLORIDE 111 MMOL/L (99-107); CREATININE 1.65 MG/DL (0.40-0.90); GLUCOSE 126 MG/DL (70-104); SODIUM 141 MMOL/L (135-145); TOTAL CARBON DIOXIDE 18.8 MMOL/L (24-32); eGFR 32 ML/MIN
[2018-07-27 06:59] LABS: GIANT PLATELET FEW; LARGE PLATELETS FEW; PLATELET ESTIMATE DECREASED; SMUDGE CELLS 1+; TOTAL CELLS COUNTED 100
[2018-07-27 07:00] LABS: ANISOCYTOSIS 2+; POLYCHROMASIA 1+
[2018-07-27 08:39] VITALS: BP 114/55
[2018-07-27] MEDS: levoTHYROXINE 75mcg tablet PO SCH (08:42)
[2018-07-27] MEDS: thiamine 100mg tablet PO SCH ×2 (08:42→20:53)
[2018-07-27] MEDS: venlafaxine 37.5mg tablet PO SCH (08:42)
[2018-07-27] MEDS: potassium chloride 10mEq ER tablet PO SCH (08:42)
[2018-07-27] MEDS: folic acid 1mg tablet PO SCH (08:42)
[2018-07-27] MEDS: gabapentin 300mg capsule PO SCH ×3 (08:42→20:53)
[2018-07-27] MEDS: spironolactone 25 MG tablet PO SCH ×2 (08:43→20:53)
[2018-07-27] MEDS ORDERED: LIDOcaine 1%/PF 5ML 10 MG/ML VIAL ONE (09:04)
[2018-07-27 09:10] VITALS: BP 150/80
[2018-07-27 09:32] VITALS: BP 148/81
[2018-07-27] MEDS: cloNIDine 0.1 mg tablet PO SCH ×2 (09:40→20:00)
[2018-07-27 10:20] LABS: GLUCOSE,BODY FLUID 138 MG/DL
[2018-07-27] MEDS: ciprofloxacin/D5W 200mg/100mL 100 ML IV SCH ×2 (10:22→20:55)
[2018-07-27 10:30] LABS: TOTAL PROTEIN,BODY FLUID < 2.0 G/DL
[2018-07-27 10:48] LABS: BF RBC COUNT 620 /CU MM; BF WBC COUNT 148 /CU MM (0-1000); BFAPPEAR HAZY; BFCOLOR STRAW; BFVOLUME 56 ML; LYMPHOCYTES,BODY FLUID 14 %; MONOCYTES,BODY FLUID 68 %; NEUTROPHILS,BODY FLUID 18 %
[2018-07-27 10:49] LABS: BF MESOTHELIAL CELLS FEW
[2018-07-27] MEDS: sodium ferric gluc complex inj 125 MG in normal saline 100ml IV soln 100 ML IV SCH (11:33)
[2018-07-27 12:20] VITALS: BP 128/59
[2018-07-27] MEDS: normal saline 1000ml 1,000 ML IV SCH ×2 (13:04→20:12)
[2018-07-27 18:00] VITALS: BP 132/90
[2018-07-27 22:00] VITALS: BP 115/72
[2018-07-28] MEDS: metroNIDAZOLE-Flagyl 500mg/NS 100 ML IV SCH ×3 (00:21→16:08)
[2018-07-28 06:00] VITALS: BP 171/84
[2018-07-28 06:05] LABS: PROTEIN,TOTAL,URINE 6.8 mg/dL (Not Estab.)
[2018-07-28] MEDS: normal saline 1000ml 1,000 ML IV SCH ×2 (06:12→16:12)
[2018-07-28 06:14] LABS: COMPLEMENT C3, SERUM 90 mg/dL (82-167); COMPLEMENT C4, SERUM 18 mg/dL (14-44)
[2018-07-28] MEDS: thiamine 100mg tablet PO SCH ×2 (08:20→20:09)
[2018-07-28] MEDS: potassium chloride 10mEq ER tablet PO SCH (08:20)
[2018-07-28] MEDS: levoTHYROXINE 75mcg tablet PO SCH (08:20)
[2018-07-28] MEDS: venlafaxine 37.5mg tablet PO SCH (08:21)
[2018-07-28] MEDS: cloNIDine 0.1 mg tablet PO SCH ×2 (08:21→20:09)
[2018-07-28] MEDS: folic acid 1mg tablet PO SCH (08:21)
[2018-07-28] MEDS: gabapentin 300mg capsule PO SCH ×3 (08:21→20:09)
[2018-07-28] MEDS: spironolactone 25 MG tablet PO SCH ×2 (08:21→20:08)
[2018-07-28] MEDS: lactulose 20gm/30ml cup PO SCH ×3 (08:24→16:07)
[2018-07-28] MEDS: pantoprazole 40 MG vial IV SCH ×2 (08:25→20:08)
[2018-07-28] MEDS: ciprofloxacin/D5W 200mg/100mL 100 ML IV SCH ×2 (09:32→20:08)
[2018-07-28 10:00] VITALS: BP 119/68
[2018-07-28] MEDS: sodium ferric gluc complex inj 125 MG in normal saline 100ml IV soln 100 ML IV SCH (10:16)
[2018-07-28 18:00] VITALS: BP 127/76
[2018-07-28 21:07] LABS: ANTINUCLEAR ANTIBODIES Negative (Negative)
[2018-07-28 22:00] VITALS: BP 163/84
[2018-07-29] MEDS: lactulose 20gm/30ml cup PO SCH ×5 (00:08→21:39)
[2018-07-29] MEDS: metroNIDAZOLE-Flagyl 500mg/NS 100 ML IV SCH ×4 (00:08→21:38)
[2018-07-29] MEDS: normal saline 1000ml 1,000 ML IV SCH ×3 (02:12→21:38)
[2018-07-29 05:00] VITALS: BP 140/73
[2018-07-29 07:26] VITALS: BP 110/74
[2018-07-29] MEDS: thiamine 100mg tablet PO SCH ×2 (07:27→20:32)
[2018-07-29] MEDS: folic acid 1mg tablet PO SCH (07:27)
[2018-07-29] MEDS: spironolactone 25 MG tablet PO SCH ×2 (07:27→20:32)
[2018-07-29] MEDS: venlafaxine 37.5mg tablet PO SCH (07:27)
[2018-07-29] MEDS: gabapentin 300mg capsule PO SCH ×3 (07:27→20:33)
[2018-07-29] MEDS: pantoprazole 40 MG vial IV SCH ×2 (07:27→20:33)
[2018-07-29] MEDS: levoTHYROXINE 75mcg tablet PO SCH (07:27)
[2018-07-29] MEDS: cloNIDine 0.1 mg tablet PO SCH ×2 (07:27→20:33)
[2018-07-29] MEDS: potassium chloride 10mEq ER tablet PO SCH (07:27)
[2018-07-29] MEDS: ciprofloxacin/D5W 200mg/100mL 100 ML IV SCH ×2 (08:56→20:00)
[2018-07-29 10:00] VITALS: BP 93/60
[2018-07-29] MEDS: sodium ferric gluc complex inj 125 MG in normal saline 100ml IV soln 100 ML IV SCH (10:44)
[2018-07-29] MEDS: LORazepam 2 mg/ml vial IV PRN (14:54)
[2018-07-29] MEDS: HYDROmorphone 1 mg/ml syringe IV PRN (17:40)
[2018-07-29 22:00] VITALS: BP 135/85
[2018-07-30] MEDS: HYDROmorphone 1 mg/ml syringe IV PRN ×2 (04:35→10:26)
[2018-07-30 06:00] VITALS: BP 136/74
[2018-07-30] MEDS: ciprofloxacin/D5W 200mg/100mL 100 ML IV SCH (08:00)
[2018-07-30] MEDS: pantoprazole 40 MG vial IV SCH (08:00)
[2018-07-30] MEDS: metroNIDAZOLE-Flagyl 500mg/NS 100 ML IV SCH (09:06)
[2018-07-30] MEDS: lactulose 20gm/30ml cup PO SCH (09:22)
[2018-07-30] MEDS: gabapentin 300mg capsule PO SCH ×3 (09:22→20:39)
[2018-07-30] MEDS: spironolactone 25 MG tablet PO SCH ×2 (09:22→20:40)
[2018-07-30] MEDS: cloNIDine 0.1 mg tablet PO SCH (09:22)
[2018-07-30] MEDS: venlafaxine 37.5mg tablet PO SCH (09:22)
[2018-07-30] MEDS: folic acid 1mg tablet PO SCH (09:23)
[2018-07-30] MEDS: levoTHYROXINE 75mcg tablet PO SCH (09:23)
[2018-07-30] MEDS: potassium chloride 10mEq ER tablet PO SCH (09:23)
[2018-07-30] MEDS: thiamine 100mg tablet PO SCH ×2 (09:23→20:39)
[2018-07-30] MEDS: normal saline 1000ml 1,000 ML IV SCH (09:28)
[2018-07-30 10:00] VITALS: BP 145/82
[2018-07-30] MEDS: sodium ferric gluc complex inj 125 MG in normal saline 100ml IV soln 100 ML IV SCH (10:03)
[2018-07-30] MEDS ORDERED: LIDOcaine 1%/PF 5ML 10 MG/ML VIAL ONE (11:21)
[2018-07-30 11:30] VITALS: BP 138/65
[2018-07-30] MEDS: morphine 10mg/0.5ml (conc. morphine) oral syringe PO PRN (14:47)
[2018-07-30] MEDS: LORazepam 2 mg/ml vial IV PRN (20:47)
[2018-07-30 22:00] VITALS: BP 149/78
[2018-07-31] MEDS: folic acid 1mg tablet PO SCH (09:05)
[2018-07-31] MEDS: venlafaxine 37.5mg tablet PO SCH (09:05)
[2018-07-31] MEDS: spironolactone 25 MG tablet PO SCH (09:05)
[2018-07-31] MEDS: thiamine 100mg tablet PO SCH (09:05)
[2018-07-31] MEDS: gabapentin 300mg capsule PO SCH (09:08)
[2018-07-31] MEDS: morphine 10mg/0.5ml (conc. morphine) oral syringe PO PRN (09:11)
[2018-07-31] MEDS: LORazepam 2 mg/ml vial IV PRN (09:40)
[2018-07-31 09:45] VITALS: BP 133/62
== END 2018-07-31 10:00 | disposition hospice, inpatient (51) ==
LOC: ER 06:29 → ED HOLD 10:12 → PCU 3S 13:06 → CMPBEDREQ 19:47 → ORTHO 4S 07-26 05:25
PROVIDERS: ADMIT Family Medicine; ATTEND Family Medicine
PROC: 06L38CZ Occlusion of Esophageal Vein with Extraluminal Device, Via Natural or Artificial Opening Endoscopic (ICD-10-PCS; principal; 2018-07-22)
PROC: 30233N1 Transfusion of Nonautologous Red Blood Cells into Peripheral Vein, Percutaneous Approach (ICD-10-PCS; 2018-07-22)
PROC: 0W9G3ZX Drainage of Peritoneal Cavity, Percutaneous Approach, Diagnostic (ICD-10-PCS; 2018-07-27)
DX: K74.60 Unspecified cirrhosis of liver (principal); K76.7 Hepatorenal syndrome; I85.11 Secondary esophageal varices with bleeding; E87.2 Acidosis; I13.0 Hypertensive heart and chronic kidney disease with heart failure and stage 1 through stage 4 chronic kidney disease, or unspecified chronic kidney disease; I95.9 Hypotension, unspecified; N17.9 Acute kidney failure, unspecified; D62 Acute posthemorrhagic anemia; I50.9 Heart failure, unspecified; N18.3 Chronic kidney disease, stage 3 (moderate); B19.10 Unspecified viral hepatitis B without hepatic coma; B19.20 Unspecified viral hepatitis C without hepatic coma; K76.6 Portal hypertension; K72.90 Hepatic failure, unspecified without coma; R18.8 Other ascites; E03.9 Hypothyroidism, unspecified; F15.10 Other stimulant abuse, uncomplicated; F17.210 Nicotine dependence, cigarettes, uncomplicated; E86.9 Volume depletion, unspecified; F10.20 Alcohol dependence, uncomplicated; I73.9 Peripheral vascular disease, unspecified; J44.9 Chronic obstructive pulmonary disease, unspecified; K46.9 Unspecified abdominal hernia without obstruction or gangrene; Z51.5 Encounter for palliative care; Z79.899 Other long term (current) drug therapy; Z79.82 Long term (current) use of aspirin; Z79.890 Hormone replacement therapy; Z98.891 History of uterine scar from previous surgery; Z90.49 Acquired absence of other specified parts of digestive tract
CPT/HCPCS: 36415; 43244; 49083; 70450; 72125; 76705; 76775; 80048; 80053; 80320; 81003; 81025; 82103; 82140; 82728; 82945; 83540; 83550; 83605; 83615; 83690; 83874; 83930; 83935; 84133; 84156; 84157; 84166; 84300; 84484; 85025; 85027; 85610; 85651; 86038; 86160; 86430; 86431; 86592; 86703; 86803; 86885; 86900; 86901; 86920; 87040; 87070; 87103; 87207; 87340; 89051; 96361; 96365; 96375; 97110; 97116; 97162; 97530; 99285; A4620; A6212; A6213; A6258; C9113; G0500; J0744; J1170; J2001; J2060; J2250; J2354; J2405; J2916; J3010; J3411; J3490; J7030; J7040; J7060; P9016